=== PATIENT | female | born 1980 | race Caucasian/White ===

== ENCOUNTER 2018-01-25 15:43 | Emergency (ER) | payer MEDICARE ==
[~2018-01-25] VITALS: Ht 142.2 cm; Wt 97.5 kg
[2018-01-25 15:55] VITALS: BP 108/49
--- NOTE | 2018-01-25 16:21 | PHYS DOC ---
Past History Past Medical History: Hypothyroid, Other Past Surgical History: Cholecystectomy, , Other Alcohol Use: None Drug Use: None Adult General Chief Complaint Chief Complaint: SORE THROAT HPI HPI 37-year-old female presents with 2 day history of left ear pain and throat pain. It is painful to swallow and she decreased hearing in the left. He was recently treated a few weeks ago for strep throat and feels like this is similar. She denies fever or chills. She has no other complaints. Review of Systems Review of Systems Constitutional: Denies fever or chills [] Eyes: Denies change in visual acuity, redness, or eye pain [] HENT: Sore throat and left ear pain [] Respiratory: Denies cough or shortness of breath [] Cardiovascular: No additional information not addressed in HPI [] GI: Denies abdominal pain, nausea, vomiting, bloody stools or diarrhea [] : Denies dysuria or hematuria [] Musculoskeletal: Denies back pain or joint pain [] Integument: Denies rash or skin lesions [] Neurologic: Denies headache, focal weakness or sensory changes [] Endocrine: Denies polyuria or polydipsia [] All other systems were reviewed and found to be within normal limits, except as documented in this note. Allergies Allergies Allergies Coded Allergies Type Severity Reaction Last Updated Verified No Known Drug Allergies 01/25/18 No Physical Exam Physical Exam Constitutional: Well developed, well nourished, no acute distress, non-toxic appearance. [] HENT: Erythematous tonsils with exudate. Left ear is erythematous and bulging.[] Eyes: PERRLA, EOMI, conjunctiva normal, no discharge. [] Neck: Normal range of motion, no tenderness, supple, no stridor. [] Cardiovascular:Heart rate regular rhythm, no murmur [] Lungs & Thorax: Bilateral breath sounds clear to auscultation [] Abdomen: Bowel sounds normal, soft, no tenderness, no masses, no pulsatile masses. [] Skin: Warm, dry, no erythema, no rash. [] Back: No tenderness, no CVA tenderness. [] Extremities: No tenderness, no cyanosis, no clubbing, ROM intact, no edema. [] Neurologic: Alert and oriented X 3, normal motor function, normal sensory function, no focal deficits noted. [] Psychologic: Affect normal, judgement normal, mood normal. [] Current Patient Data Vital Signs Vital Signs Date Time Temp Pulse Resp B/P (MAP) Pulse Ox O2 Delivery O2 Flow Rate FiO2 01/25/18 15:55 97.9 100 16 97 Room Air EKG EKG [] Radiology/Procedures Radiology/Procedures [] Course & Med Decision Making Course & Med Decision Making Pertinent Labs and Imaging studies reviewed. (See chart for details) Patient is positive for rapid strep. She also has an otitis media of the left ear. [] Dragon Disclaimer Dragon Disclaimer This electronic medical record was generated, in whole or in part, using a voice recognition dictation system. Departure Departure: Referrals: LATOYA ALFONSO MD (PCP) RONEL PÉREZ DO January 25, 2018 16:21
[2018-01-25] MEDS ORDERED: AMOX1TAB61 PO (16:23)
== END 2018-01-25 16:29 | disposition home or self-care (01) ==
LOC: ER 15:43
DX: H66.92 Otitis media, unspecified, left ear (principal); J02.0 Streptococcal pharyngitis; E03.9 Hypothyroidism, unspecified
CPT/HCPCS: 87880; 99283

== ENCOUNTER 2021-06-07 22:51 | Emergency (ER) | payer MEDICARE ==
[~2021-06-07] VITALS: Ht 142.2 cm; Wt 119.7 kg
[~2021-06-07 22:51] MED LIST: AMOX1TAB61 PO
[2021-06-07 23:16] VITALS: BP 145/79
[2021-06-07] MEDS ORDERED: ASPIRIN ENTERIC COATED 325 MG TABLET.DR. PO ONE (23:30)
--- NOTE | 2021-06-07 23:31 | PHYS DOC ---
Past History Past Medical History: Hypothyroid, Other Additional Past Medical Histor: PT STATES HAS HALF A HEART Past Surgical History: , Other Additional Past Surgical Histo: OPEN HEART SURGERY Alcohol Use: None Drug Use: None General Adult EDM: Chief Complaint: SHORTNESS OF BREATH HPI: HPI: Patient is a [age] year old [sex] who presents with [] Review of Systems: Review of Systems: Constitutional: Denies fever or chills Eyes: Denies redness or eye pain HENT: Denies nasal congestion or sore throat Respiratory: Denies cough or shortness of breath Cardiovascular: Denies chest pain or palpitations GI: Denies abdominal pain, nausea, or vomiting : Denies dysuria or hematuria Musculoskeletal: Denies back pain or joint pain Integument: Denies rash or skin lesions Neurologic: Denies headache, focal weakness or sensory changes Complete systems were reviewed and found to be within normal limits, except as documented in this note. Current Medications: Current Meds: Current Medications Medications (Trade) Dose Ordered Sig/Mauro Start Time Stop Time Status Last Admin Dose Admin Aspirin (Aspirin Enteric Coated) 325 mg 1X ONCE 06/07/21 23:30 06/07/21 23:31 Allergies: Allergies: Allergies Coded Allergies Type Severity Reaction Last Updated Verified No Known Drug Allergies 01/25/18 No Physical Exam: PE: Constitutional: Well developed, well nourished, no acute distress, non-toxic appearance HENT: Normocephalic, atraumatic Eyes: PERRL, EOMI, conjunctiva normal, no discharge Neck: Normal range of motion, no tenderness, supple Lungs & Thorax: No respiratory distress, equal chest rise and fall Abdomen: Soft, no tenderness Skin: Warm, dry, no erythema, no rash Back: No tenderness, no CVA tenderness Extremities: No tenderness, ROM intact, no edema Neurologic: Alert and oriented X 3, normal motor function, normal sensory function, no focal deficits noted Psychologic: Affect normal, judgment normal Current Patient Data: Vital Signs: Vital Signs Date Time Temp Pulse Resp B/P (MAP) Pulse Ox O2 Delivery O2 Flow Rate FiO2 06/07/21 23:16 98.1 93 16 145/79 (101) 91 Room Air EKG: EKG: @2320 NSR at 91bpm, NO ST elevation, Q wave in I-II and aVL, non-specific t wave inversion I-II,avL, and V2-V6, QRS 90ms, QT/QTc 424/523ms Radiology/Procedures: Radiology/Procedures: PROCEDURE: PORTABLE CHEST 1V EXAM: CHEST ONE VIEW. HISTORY: Dyspnea. COMPARISON: 06-29. FINDINGS: A frontal view of the chest is obtained. Right basilar volume loss appears chronic. There are mild diffuse airspace opacities. There is no pneumothorax or pleural effusion. The heart is moderately enlarged. The superior mediastinum is widened chronically. IMPRESSION: 1. Mild bilateral airspace opacities may reflect chronic scarring or atypical pneumonia. 2. Moderate cardiomegaly with dextrocardia or mesial cardia. Correlate for a known diagnosis. 3. Mediastinal widening is chronic and likely reflects aortic tortuosity. Comparison with prior CT could confirm anatomy. Electronically signed by: Justyna Mcclendon MD (06/07/2021 11:48 PM) [facility] [place] Heart Score: C/O Chest Pain: N/A Course & Med Decision Making: Course & Med Decision Making Pertinent Labs and Imaging studies reviewed. (See chart for details) Patient stable for discharge with outpatient follow-up with PCP. Discussed findings and plan with patient, who acknowledges understanding and agreement. COVID-19 CRITERIA: The patient was evaluated during the global COVID-19 pandemic, and that diagnosis was suspected/considered upon their initial presentation. Their evaluation, treatment and testing was consistent with current guidelines for patients who present with complaints or symptoms that may be related to COVID-19. Shwetha Disclaimer: Dragbobby Disclaimer: This electronic medical record was generated, in whole or in part, using a voice recognition dictation system. Departure Departure: Impression: Primary Impression: Bronchitis Additional Impression: Suspected 2019 novel coronavirus infection Disposition: HOME / SELF CARE / HOMELESS Condition: STABLE Referrals: LUISA ANTOINE (PCP) Patient Instructions: Acute Bronchitis, [id number], Viral Syndrome Additional Instructions: You have been tested for or diagnosed with COVID-19. It is an infection caused by a new type of coronavirus. COVID-19 will cause cold-like or mild flu symptoms in most. It can cause more severe symptoms like problems breathing in some. There is no treatment for COVID-19. The body will clear the infection over time. Self-care will help to ease discomfort. Steps to Take: Self-Care Rest as needed. Healthy habits may help you feel better. Steps include: Choose healthy foods including fruits and vegetables. Drink water throughout the day. Get plenty of sleep each night. If you smoke, try to quit. It may ease breathing. Avoid alcohol. Keep Others Healthy The virus can spread to others. Droplets are released every time you sneeze or cough. The droplets can get into the mouth, nose, or eyes of people near you and lead to infection. To lower the chances of spreading COVID-19 to others: Stay at home until your doctor has said it is safe to leave. If you tested positive this will mean staying isolated until both of the following are true: At least 7 days have passed since the start of illness. You are free of fever for at least 72 hours without the use of medicine. During this time: - Avoid public areas, events, or transportation. Do not return to work or school until your doctor has said it is safe to do so. - Call ahead if you need to go to a medical center. Let them know you may have COVID-19. It will help them guide you where to go. They may also ask you to wear a facemask when you come to the office. - If you call for emergency medical services, let them know you may have COVID- 19. While at home: - Try to avoid close contact with others. Stay about 6 feet away. - If possible, spend most of your time in a separate room from others. - Use a face mask if you will be in close contact with others such as sharing a room or vehicle. - Have someone wipe down common surfaces in the home. Use household block sawyer every day on areas like doorknobs, counters, or sinks. - Cough or sneeze into a tissue. Throw the tissue away right after use. If a tissue is not available, cough or sneeze into your elbow. - Wash your hands often. Wash them after sneezing or coughing. Use soap and water and wash for at least 20 seconds. Alcohol based hand wall cleaner can be used if soap and water is not available. - Do not prepare food for others. Avoid sharing personal items like forks, spoons, or toothbrushes. - Avoid close contact with pets while you are sick. There is no evidence of the virus passing to pets. This is a safety step until more is known about this virus. Isolation can be frustrating. Social interaction can help. Keep in touch with friends and family through phone and tech options. You can still interact with others in y our home, just keep a safe distance of about 6 feet. Follow-up: Your doctors office will check in with you to see if there are any changes in your health. You may be asked to keep track of symptoms to share with them. They will also let you know when you are clear to be in public again. Problems to Look Out For: Contact your doctor if your recovery is not going as you expect. Get emergency care if you have problems such as: - Trouble breathing - Nonstop chest pain or pressure - Changes in awareness, confusion, or problems waking - Lips or face have bluish color - Worsening of symptoms If you think you have an emergency, call for emergency medical services right away. As taken from [employer] [facility] Script[facility] Albuterol Sulfate (PROAIR HFA INHALER) 8.5 Gm Hfa.aer.ad 2 PUFF IH PRN Q4-6HRS PRN for wheezing, #1 INHALER 0 Refills Prov: MARITZA MORENO DO 06/08/21 Azithromycin (AZITHROMYCIN TABLET) 250 Mg Tablet 1 PKG PO UD for bronchitis, #6 TAB Take 2 tablets today and then one tablet every day thereafter for the next 4 days Prov: MARITZA MORENO DO 06/08/21 Prednisone (PREDNISONE) 20 Mg Tablet 2 TAB PO DAILY for Bronchitis, #8 TAB Start this prescription tomorrow, Thursday06/09/21 Prov: MARITZA MORENO DO 06/08/21 COVID-19 Assessment COVID-19 Patient Risks: Age 65 or older: No Sign of co-morbidity: Yes Exp to person + for COVID: No Exp to PUI: No Travel from affected area: No Lower respiratory symptoms: Yes Fever: No Other: Yes PPE Use: Full PPE with N95 mask or PAPR: Yes MARITZA MORENO DO Jun 07, 2021 23:31
--- NOTE | 2021-06-07 23:51 | RAD ---
EXAM: CHEST ONE VIEW. HISTORY: Dyspnea. COMPARISON: 06-29. FINDINGS: A frontal view of the chest is obtained. Right basilar volume loss appears chronic. There are mild diffuse airspace opacities. There is no pne umothorax or pleural effusion. The heart is moderately enlarged. The superior mediastinum is widened chronically. IMPRESSION: 1. Mild bilateral airspace opacities may reflect chronic scarring or atypical pneumonia. 2. Moderate cardiomegaly with dextrocardia or mesial cardia. Correlate for a known diagnosis. 3. Mediastinal widening is chronic and likely reflects aortic tortuosity. Comparison with prior CT co uld confirm anatomy. Electronically signed by: Justyna Mcclendon MD (06/07/2021 11:48 PM) [facility]
[2021-06-08 00:10] LABS: BASO # 0.1 x10^3/uL (0.0-0.2); BASO % 1 % (0-3); EOS # 0.2 x10^3/uL (0.0-0.7); EOS % 2 % (0-3); HEMATOCRIT 44.5 % (36.0-47.0); HEMOGLOBIN 14.9 g/dL (12.0-15.5); LYMPH # 2.1 x10^3/uL (1.0-4.8); LYMPH % 18 % (24-48); MEAN CORPUSCULAR HEMOGLOBIN 32 pg (25-35); MEAN CORPUSCULAR HGB CONC 33 g/dL (31-37); MEAN CORPUSCULAR VOLUME 97 fL (79-100); MONO # 0.7 x10^3/uL (0.0-1.1); MONO % 6 % (0-9); NEUT # 8.6 x10^3uL (1.8-7.7); NEUT % 74 % (31-73); PLATELET COUNT 209 x10^3/uL (140-400); RED BLOOD COUNT 4.61 x10^6/uL (3.50-5.40); WHITE BLOOD COUNT 11.7 x10^3/uL (4.0-11.0)
[2021-06-08 00:32] LABS: CALCIUM 9.3 mg/dL (8.5-10.1); CREATININE 0.5 mg/dL (0.6-1.0); POTASSIUM 3.8 mmol/L (3.5-5.1)
[2021-06-08] MEDS ORDERED: AZIT250T6 PO (00:48)
[2021-06-08] MEDS ORDERED: PRED20TA PO (00:48)
[2021-06-08 00:49] LABS: ALBUMIN 3.5 g/dL (3.4-5.0); ALBUMIN/GLOBULIN RATIO 0.8 (1.0-1.7); MAGNESIUM 1.8 mg/dL (1.8-2.4); TOTAL BILIRUBIN 0.4 mg/dL (0.2-1.0); TOTAL PROTEIN 7.7 g/dL (6.4-8.2)
[2021-06-08] MEDS ORDERED: ALBU2.5V8 IH (00:52)
--- NOTE | 2021-06-08 02:35 | EKG ---
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
--- NOTE | 2021-06-09 19:28 | NUR ---
IP: Patient notified of negative COVID19 test result. Verbalized understanding.
== END 2021-06-08 00:58 | disposition home or self-care (01) ==
LOC: ER 22:51
DX: J40 Bronchitis, not specified as acute or chronic (principal); Z20.822 Contact with and (suspected) exposure to COVID-19
CPT/HCPCS: 36415; 71045; 80053; 82553; 83605; 83690; 83735; 83880; 84484; 85025; 93005; 99285; C9803; U0003

== ENCOUNTER 2021-09-12 14:20 | Emergency (ER) | payer MEDICARE ==
[~2021-09-12] VITALS: Ht 142.2 cm; Wt 119.7 kg
[~2021-09-12 14:20] MED LIST changes: +ALBU2.5V8 IH; +AZIT250T6 PO; +PRED20TA PO
[2021-09-12 14:25] VITALS: BP 145/79
[2021-09-12] MEDS ORDERED: HYDROcodone/APAP 5/325MG 1 TAB TABLET PO ONE (15:15)
[2021-09-12] MEDS ORDERED: diazePAM 5 MG TABLET. PO ONE (15:15)
[2021-09-12] MEDS ORDERED: predniSONE 10 MG TABLET. PO ONE (15:15)
[2021-09-12] MEDS ORDERED: NAPROXEN 500 MG TABLET PO ONE (15:15)
[2021-09-12] MEDS ORDERED: METH4TAB2 PO (15:48)
[2021-09-12] MEDS ORDERED: HYDR-2155 PO (15:48)
--- NOTE | 2021-09-12 15:50 | PHYS DOC ---
Past History Past Medical History: Hypothyroid, Other Additional Past Medical Histor: PT STATES HAS HALF A HEART, chronic back pain Past Surgical History: , Other Additional Past Surgical Histo: OPEN HEART SURGERY Smoking: Non-smoker Alcohol Use: None Drug Use: None Adult General Chief Complaint Chief Complaint: BACK PAIN OR INJURY HPI HPI Patient is a 40-year-old female patient presented to the ED today complaining of 10 out of 10 bilateral low back pain, symptoms have been going on for 4 years but got worse today. States the pain was severe enough that she called 911 to bring her to the ED. Patient states she tried taking her muscle relaxers/Flexeril with no relief. States she is also taking ibuprofen with no relief. Patient denies any trauma. Denies any numbness or tingling to bilateral lower extremities. Denies any pain radiating to bilateral lower extremities. States the pain is worse on weightbearing but she is able to ambulate. Review of Systems Review of Systems Constitutional: Denies fever or chills [] Musculoskeletal: Reports low back pain Integument: Denies rash or skin lesions [] Neurologic: Denies headache, focal weakness or sensory changes [] All other systems were reviewed and found to be within normal limits, except as documented in this note. Current Medications Current Medications Current Medications Medications (Trade) Dose Ordered Sig/[facility] Start Time Stop Time Status Last Admin Dose Admin Acetaminophen/ Hydrocodone Bitart (Lortab 5/325) 2 tab 1X ONCE 09/12/21 15:15 09/12/21 15:16 DC 09/12/21 15:24 2 TAB Diazepam (Valium) 5 mg 1X ONCE 09/12/21 15:15 09/12/21 15:16 DC 09/12/21 15:24 5 MG Naproxen (Naprosyn) 500 mg 1X ONCE 09/12/21 15:15 09/12/21 15:16 DC 09/12/21 15:24 500 MG Prednisone (Prednisone) 50 mg 1X ONCE 09/12/21 15:15 09/12/21 15:16 DC 09/12/21 15:24 50 MG Allergies Allergies Allergies Coded Allergies Type Severity Reaction Last Updated Verified No Known Drug Allergies 01/25/18 No Physical Exam Physical Exam Constitutional: Obese patient. Well developed, well nourished, no acute distress, non-toxic appearance. [] Skin: Warm, dry, no erythema, no rash. [] Back: Diffuse paraspinal muscle tenderness to the right lumbar spine, no midline lumbar spine tenderness, no CVA tenderness. Unable to perform straight leg raises due to patient's pain Extremities: No tenderness, no cyanosis, no clubbing, ROM intact, no edema. [] Neurologic: Alert and oriented X 3, normal motor function, normal sensory function, no focal deficits noted. [] Psychologic: Affect normal, judgement normal, mood normal. [] Current Patient Data Vital Signs Vital Signs Date Time Temp Pulse Resp B/P (MAP) Pulse Ox O2 Delivery O2 Flow Rate FiO2 09/12/21 15:24 18 96 Room Air 09/12/21 14:25 98.1 71 145/79 (101) EKG EKG [] Radiology/Procedures Radiology/Procedures [] Heart Score C/O Chest Pain: N/A Risk Factors: Risk Factors: DM, Current or recent (<one month) smoker, HTN, HLP, family history of CAD, obesity. Risk Scores: Risk Factors: DM, Current or recent (<one month) smoker, HTN, HLP, family history of CAD, obesity. Course & Med Decision Making Course & Med Decision Making Pertinent Labs and Imaging studies reviewed. (See chart for details) This is a 40-year-old female patient presented to the ED today complaining of low back pain, symptoms began 4 years ago and got worse today. Patient has no cauda equina syndrome symptoms. Discharged home. Follow-up with PCP in 1 week. Dragon Disclaimer Dragon Disclaimer This electronic medical record was generated, in whole or in part, using a voice recognition dictation system. Departure Departure: Impression: Primary Impression: Low back pain Disposition: 01 HOME / SELF CARE / HOMELESS Condition: STABLE Referrals: NON,STAFF (PCP) follow up with your doctor in one week Patient Instructions: Back Pain, Adult, [id number] Additional Instructions: You were evaluated in the emergency room for low back pain. Please take your prescribed medications as ordered. Follow-up with your doctor next week Scripts Hydrocodone Bit/Acetaminophen (HYDROCODONE-APAP 5-325 ) 1 Each Tablet 1 TAB PO PRN Q6HRS PRN for PAIN, #20 TAB 0 Refills Prov: SARA PATTEN PAINT ROLLER WINDER 09/12/21 Methylprednisolone (MEDROL) 4 Mg Tab.ds.pk 1 PKG PO UD, #1 PKG Prov: SARA PATTEN PAINT ROLLER WINDER 09/12/21 Problem Qualifiers Primary Impression: Low back pain Chronicity: chronic Back pain laterality: bilateral Sciatica presence: without sciatica Qualified Codes: M54.50 - Low back pain, unspecified; G89.29 - Other chronic pain SARA PATTEN PAINT ROLLER WINDER Sep 12, 2021 15:50
== END 2021-09-12 16:40 | disposition home or self-care (01) ==
LOC: ER 14:20
DX: M54.59 Other low back pain (principal); G89.29 Other chronic pain; E03.9 Hypothyroidism, unspecified; Z98.890 Other specified postprocedural states
CPT/HCPCS: 99284; J7512